=== PATIENT | male | born 1935 | race Caucasian/White ===

== ENCOUNTER 2019-05-23 09:32 | Emergency (ER) | payer MEDICARE ==
[~2019-05-23] VITALS: Ht 165.1 cm; Wt 104.0 kg
[2019-05-23 10:18] LABS: PARTIAL THROMBOPLASTIN TIME 31 SECONDS (22-32)
[2019-05-23 10:21] LABS: ALANINE AMINOTRANSFERASE 19 U/L (12-78); ALBUMIN 3.2 G/DL (3.4-5.0); ALBUMIN/GLOBULIN RATIO 0.6 (1.1-1.5); ALKALINE PHOSPHATASE 133 IU/L (46-116); ANION GAP 8 (8-16); ASPARTATE AMINO TRANSFERASE 12 U/L (10-37); BILIRUBIN,TOTAL 0.3 MG/DL (0.1-1.0); BLOOD UREA NITROGEN 18 MG/DL (7-18); BUN/CREATININE RATIO 16.8 (5.4-32.0); CALCIUM 9.1 MG/DL (8.5-10.1); CHLORIDE 103 MMOL/L (99-107); CREATININE 1.07 MG/DL (0.60-1.10); GLUCOSE 102 MG/DL (70-104); POTASSIUM 4.3 MMOL/L (3.5-5.1); SODIUM 141 MMOL/L (135-145); TOTAL CARBON DIOXIDE 30.1 MMOL/L (24-32); TOTAL PROTEIN 8.6 G/DL (6.4-8.2); eGFR 66 ML/MIN
[2019-05-23 10:51] LABS: BASOPHILS # (AUTO) 0.1 X10'3 (0-0.2); BASOPHILS % (AUTO) 0.8 % (0-1); EOSINOPHILS # (AUTO) 0.4 X10'3 (0-0.9); HEMATOCRIT 38.6 % (42.0-52.0); HEMOGLOBIN 12.7 g/dl (14.0-17.9); LYMPHOCYTES # (AUTO) 1.9 X10'3 (1.1-4.8); LYMPHOCYTES % (AUTO) 20.7 % (21-51); MEAN CORPUSCULAR HEMOGLOBIN 30.2 PG (27.0-31.0); MEAN CORPUSCULAR HGB CONC 32.9 g/dL (33.0-36.5); MEAN CORPUSCULAR VOLUME 91.7 FL (78-98); MONOCYTES # (AUTO) 0.6 X10'3 (0-0.9); MONOCYTES % (AUTO) 6.4 % (2-12); NEUTROPHILS # (AUTO) 6.4 X10'3 (1.8-7.7); NEUTROPHILS % (AUTO) 68.1 % (42-75); RED BLOOD COUNT 4.21 X10'6 (4.70-6.10); RED CELL DISTRIBUTION WIDTH 14.8 % (11.5-14.5); WHITE BLOOD COUNT 9.3 X10'3 (4.5-11.0)
[2019-05-23 10:52] LABS: MEAN PLATELET VOLUME 6.6 FL (7.4-10.4); PLATELET COUNT 320 X10'3 (140-440)
[2019-05-23 10:58] LABS: CLARITY,URINE TURBID (Clear); COLOR,URINE YELLOW (Yellow); GLUCOSE, URINE NEGATIVE (Neg); KETONES,URINE NEGATIVE (Neg); LEUKOCYTE ESTERASE ,URINE LARGE (Neg); NITRITES, URINE NEGATIVE (Neg); OCCULT BLOOD,URINE SMALL (Neg); PROTEIN,URINE 30 mg/dl (Neg); UROBILINOGEN,URINE 0.2 E.U/dL (0.2-1.0)
[2019-05-23 11:05] LABS: UA COLLECTION TYPE CLN CATCH MIDSTREAM
[2019-05-23 11:06] LABS: WBC,URINE TNTC /HPF (0-4)
[2019-05-23 11:07] LABS: AMORPHOUS PHOSPHATES 3+; BACTERIA,URINE 3+ /HPF (Neg); MUCUS STRANDS NONE SEEN /LPF (Neg); SQUAMOUS EPITHELIAL CELL,UR NONE SEEN /LPF (FEW); WBC CLUMPS,URINE MANY /HPF (NEGATIVE)
[2019-05-23] MEDS ORDERED: cephalexin 250mg capsule PO ONE (11:55)
[2019-05-23] MEDS ORDERED: CEPH500C5 PO (11:56)
[2019-05-23 12:07] VITALS: BP 150/72
--- NOTE | 2019-05-23 12:09 | NUR ---
gETTING PATIENT SCRUB PANTS DAUGHTER AT BEDSIDE TO TAKE PATIENT HOME
--- NOTE | 2019-05-23 12:15 | NUR ---
Bed change performed. pt was incontinent of urine and stool. pt brought in with home slider blanket and clothes. When performing bed change and diaper change, bedding was saturated with dried urine. Spoke to Carol (daughter) she states that she was not able to change him before sending him to the ER.
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
== END 2019-05-23 15:50 | disposition home or self-care (01) ==
LOC: ER 09:32
DX: N39.0 Urinary tract infection, site not specified (principal); R60.0 Localized edema; I50.9 Heart failure, unspecified; I11.0 Hypertensive heart disease with heart failure; J44.9 Chronic obstructive pulmonary disease, unspecified; G47.30 Sleep apnea, unspecified; Z79.2 Long term (current) use of antibiotics; Z86.79 Personal history of other diseases of the circulatory system
CPT/HCPCS: 36415; 71045; 80053; 81001; 84484; 85025; 85610; 85730; 87077; 87088; 87186; 93005; 99285

== ENCOUNTER 2020-03-10 13:55 | Outpatient (CLI) | payer MEDICARE ==
[~2020-03-10 13:55] MED LIST: BENZ200C53 PO; BUPR300T86 PO; CEFU500T66 PO; COLE1TAB2 PO; DONE10TA11 PO; FURO20TA4 PO; GABA600T13 PO; IPRA3AMP9 NEB; LOSA100T57 PO; MEMA10TA56 PO; PRAM0.253 PO; ROSU20TA2 PO; [UNRECOGNIZED DRUG - CODE] PO
== END 2020-03-10 23:59 | disposition home or self-care (01) ==
LOC: RAD 13:55
PROVIDERS: ATTEND Internal Medicine
DX: R13.12 Dysphagia, oropharyngeal phase (principal)
CPT/HCPCS: 74230